=== PATIENT | female | born 1950 | race African-American/Black ===

== ENCOUNTER → 2021-04-24 | Day surgery (SDC) | payer MEDICARE ==
[2021-04-21 11:26] LABS: BASOPHILS % 0.4 % (0.0-1.0); EOSINOPHILS # (AUTO) 0.5 (0.0-0.4); EOSINOPHILS % 6.2 % (0.0-6.0); HEMATOCRIT 34.9 % (34.2-44.1); HEMOGLOBIN 11.3 g/dL (12.0-16.0); LYMPHOCYTES # (AUTO) 1.3 (1.0-3.2); LYMPHOCYTES % 18.2 % (18.0-39.1); MEAN CORPUSCULAR HEMOGLOBIN 29.6 pg (28-32); MEAN CORPUSCULAR HGB CONC 32.4 g/dL (31-35); MEAN CORPUSCULAR VOLUME 91.4 fL (81-99); MONOCYTES # (AUTO) 0.7 (0.2-0.8); MONOCYTES % 9.9 % (4.4-11.3); NEUTROPHILS # (AUTO) 4.7 (2.1-6.9); PLATELET COUNT 217 x10e3/uL (140-360); RED BLOOD COUNT 3.82 x10e6/uL (3.6-5.1)
[~2021-04-24] MED LIST: LIDOCAINE HCL 2% LOCAL INJ 5 ML SDV VIAL INJ ONE; PROPOFOL IV EMULSION 10 MG/ML 20 ML VIAL ONE; TELMISARTAN-HC1 EAC2 PO
[2021-04-24 10:50] VITALS: BP 137/66
== END | disposition home or self-care (01) ==
LOC: OR 07:11
PROVIDERS: ATTEND Internal Medicine Gastroenterology
DX: K29.50 Unspecified chronic gastritis without bleeding (principal); K22.2 Esophageal obstruction; K21.00 Gastro-esophageal reflux disease with esophagitis, without bleeding; K44.9 Diaphragmatic hernia without obstruction or gangrene; Z71.3 Dietary counseling and surveillance; E66.01 Morbid (severe) obesity due to excess calories; I10 Essential (primary) hypertension; Z01.810 Encounter for preprocedural cardiovascular examination; Z01.812 Encounter for preprocedural laboratory examination; Z68.44 Body mass index [BMI] 60.0-69.9, adult
CPT/HCPCS: 36415; 43239; 85025; 88305; 88312; 93005; J2001